=== PATIENT | male | born 1955 | race Caucasian/White ===

== ENCOUNTER → 2023-10-09 08:58 | Outpatient (REF) | payer MEDICARE, OTHER, SELFPAY | LOC: DHVS 08:58 | PROVIDERS: ATTENDING PHYSICIAN Surgery Vascular Surgery; FAMILY PHYSICIAN Physician Assistant; REFERRING PHYSICIAN Internal Medicine | DX: I73.9 Peripheral vascular disease, unspecified (principal) | CPT/HCPCS: 93922; 93925 ==

== ENCOUNTER → 2023-11-20 06:28 | Day surgery (SDC) | payer MEDICARE, OTHER, SELFPAY ==
[2023-11-20 07:19] LABS: Glucose - Point of Care 178 mg/dl (70-99)
== END ==
LOC: GI 06:28
PROVIDERS: ATTENDING PHYSICIAN Internal Medicine Gastroenterology
DX: Z12.11 Encounter for screening for malignant neoplasm of colon (principal); D12.2 Benign neoplasm of ascending colon; D12.5 Benign neoplasm of sigmoid colon; K64.8 Other hemorrhoids; Z86.010 Personal history of colon polyps
CPT/HCPCS: 45385; 88305; 82962

== ENCOUNTER → 2024-10-03 07:57 | Outpatient (REF) | payer MEDICARE, OTHER, SELFPAY | LOC: RAD 07:57 | PROVIDERS: ATTENDING PHYSICIAN Surgery Vascular Surgery; FAMILY PHYSICIAN Internal Medicine | DX: I73.9 Peripheral vascular disease, unspecified (principal); Z13.89 Encounter for screening for other disorder | CPT/HCPCS: 93922; 93925 ==

== ENCOUNTER 2024-12-25 06:10 | Inpatient (IN) | payer MEDICARE, OTHER, SELFPAY ==
[2024-12-22 09:37] VITALS: BMI 31.3
[2024-12-22 10:24] LABS: Hematocrit 32.9 % (39.0-52.0); Hemoglobin 11.1 g/dL (13.0-18.0); Mean Corp Hgb Conc. 33.7 g/dL (33.0-37.0); Mean Corpuscular Volume 84.8 fL (80.0-94.0); Nucleated Red Blood Cells % 0 % (-); Platelet Count 243 10^3/uL (130-400); Red Cell Dist. Width 13.4 % (11.5-14.5)
[2024-12-22 10:28] LABS: INR 0.95; PT 13.0 Sec (11.4-14.6)
[2024-12-22 10:29] LABS: APTT 30.9 Sec (23.4-35.0)
[2024-12-22 11:09] LABS: Blood Urea Nitrogen 22 mg/dl (9-20); Calcium 9.8 mg/dl (8.4-10.2); Carbon Dioxide 23 mmol/L (22-30); Chloride 104 mmol/L (98-107); Estimated Creatinine Clearance 88 ml/min; Glucose 88 mg/dl (70-99); Potassium 5.0 mmol/L (3.5-5.1); Sodium 135 mmol/L (135-145); eGFR > 60.00
[2024-12-25] VITALS (15 sets, daily range): BP systolic 135–166; BP diastolic 51–91; BMI 31.3; BMI 31.1
[2024-12-25] MEDS: BACTROBAN NASAL 1 GRAM NASAL (06:42)
[2024-12-25] MEDS: PERIDEX 0.12% ORAL RINSE 15 ML PO (06:42)
[2024-12-25] MEDS: NSS 500 IV (06:43)
[2024-12-25 06:48] LABS: Glucose - Point of Care 91 mg/dl (70-99)
--- NOTE | 2024-12-25 10:09 | OR.RPT ---
Operative Report
Operative Report
PROCEDURE DATE: 12/25/2024
Preoperative diagnosis: Symptomatic left carotid artery stenosis.
Postoperative diagnosis: Same
Procedure: Left carotid endarterectomy with bovine pericardial patch angioplasty and intraoperative EEG/SSEP monitoring.
Surgeon: Moises
Terminal Press Operator: MARI Goncalves, required for all aspects of procedure including assistance with traction/countertraction, following suture line, assistance with closure.
Complications: None
Anesthesia: General
Indications for procedure:
Patient with recent TIA event, expressive aphasia. [id number]. Left carotid stenosis noted. Discussed risk/benefits/alternatives of left carotid revascularization. Patient understood all wished to proceed.
Description of procedure:
Patient was identified brought to the operating room placed on the table in supine position. After the adequate administration of anesthesia and perioperative antibiotics he was prepped and draped in the standard surgical fashion. A standard
preoperative timeout was undertaken and everybody was in agreement the plan. A standard longitudinal incision was made in the [] neck that was carried through the skin subcutaneous tissue. Using the electrocautery dissection was carried through
the platysma muscle layer and then alongside the anterior medial border of the sternocleidomastoid muscle. Then using a combination of sharp dissection with the Metzenbaum scissors and electrocautery I dissected along the anterior medial border of
the internal jugular vein. The common facial vein branch was ligated between silk ties and then divided. I then deepened my retraction. The common carotid artery was identified and carefully dissected away from the surrounding structures take
great care to avoid any injury to the structures. A vessel loop was passed around it which was double looped, but not yet tightened. Note the vagus nerve was clearly visualized coursing along the lateral surface of the common carotid artery, and
was clearly protected from harm's way. I then continued my dissection up the common carotid artery to the bulb staying only on the anterior surface of the carotid artery. Then I carried the dissection up to the internal carotid artery and then to
the distal internal carotid artery. I identified where it was soft and carefully circumferentially dissected the internal carotid artery with minimal mobilization and passed a vessel loop around it. Note the hypoglossal nerve was not visualized
and felt to be further cephalad. The patient was given an appropriate dose of heparin 10,000 units. Next I dissected the anterior surface of the external carotid artery and superior thyroid branches. These were then carefully circumferentially
dissected with minimal mobilization and vessel loops passed around these which were double looped but not yet tightened. After 3 minutes of heparin circulation time and confirmation of optimization of the blood pressure with my anesthesiology
colleagues, I clamped the distal internal carotid artery where it was soft. There was no immediate EEG or SSEP changes. After 1 minute of test clamp time there was no changes noted. Therefore at this point, the vessel loops on the external
carotid artery and superior thyroid branches were tightened and the common carotid artery was clamped where it was soft proximally. An arteriotomy was made on the common carotid artery with an 11 blade and extended using a Tolliver scissor. Was
extended the arteriotomy onto the mid to distal internal carotid artery. We encountered hard calcified plaque with somewhat friable type shard like extensions into the lumen. The distalmost extent of the plaque in the internal carotid artery
resulted in this significant stenosis as noted on CT scan. A [place] was then used to endarterectomized the plaque. An endarterectomy plane was created, and the plaque was then endarterectomized. Distally I feathered the plaque out to a reasonable
endpoint in the distal internal carotid artery. Next I endarterectomized the intima back to normal intima in the common carotid artery, and the intima was cut flush there. I then grasped the plaque and everted plaque out of the origin of the
external carotid artery. The plaque was then sent off for specimen. The plaque did not come in the single piece out of the external carotid artery despite my efforts, and therefore I had to tease out additional plaque from the external carotid
artery. The origin of the external carotid artery was carefully visualized and any fine debris were removed with fine forceps. Proximal and distal endpoints were then carefully inspected. Proximally I had to extend the arteriotomy about a
centimeter to and cut the intima more flush so it was nicely adherent. Distally, there was a posterior lip of plaque that persisted and therefore I had to carefully further endarterectomized this and then cut it flush. Next any fine debris were
removed throughout the endarterectomy bed with fine forceps. Interrupted 7-0 Prolene tacking sutures were placed to tack the distal endpoint. I then flushed heparinized saline. I was very satisfied. Then, I used a bovine pericardial patch to sew
a patch angioplasty with a running 6-0 Prolene suture. Prior to completing and tying down my suture line, I backbled sequentially each branch and reclamped each branch prior to unclamping the next branch. I then irrigated with heparinized saline.
Then I completed and tied down my suture line. We then restored flow in the common carotid and external carotid arteries. Finally, we released flow in the internal carotid artery. There was excellent pulsatile flow in all 3 vessels. There was an
excellent Doppler signal in the internal carotid artery distal to the patch with a good normal low resistance Doppler signal. There was a good Doppler signal in the external carotid artery as well. Protamine was given to reverse the heparin.
Hemostasis was completely achieved. We then irrigated and confirmed full hemostasis. I began closing therefore, but was informed by our monitoring colleagues that there was a slight diminishment in right median SSEP potentials. There was
absolutely no EEG changes though. This is a little odd to me. Therefore I stopped closing and reinspected the endarterectomy site and noted everything to be pulsatile. I then used a sterile duplex probe and performed duplex of the
endarterectomized artery and all appeared widely patent with no evidence of residual plaque/unstable plaque or thrombus. There was some plaque in the distal external carotid artery that was residual. However nothing in the endarterectomized common
carotid/bulb/internal carotid artery. Therefore at this point I was very satisfied. SSEPs also returned to baseline with slight pressure elevation. We then closed in layers with 2-0 Vicryl layer to reapproximate the sternocleidomastoid muscle,
followed by 3-0 Vicryl platysma muscle running layer, followed by 4-0 Monocryl subcuticular stitch. Dermabond was applied. The patient tolerated procedure well. He awoke moving all extremities to command with tongue in the midline.
[2024-12-25 10:23] LABS: Glucose - Point of Care 146 mg/dl (70-99)
[2024-12-25] MEDS: DILAUDID 0.25 MG IV (10:54)
[2024-12-25 10:55] LABS: Hematocrit 31.7 % (39.0-52.0); Hemoglobin 10.7 g/dL (13.0-18.0); Mean Corp Hgb Conc. 33.8 g/dL (33.0-37.0); Mean Corpuscular Volume 85.7 fL (80.0-94.0); Platelet Count 226 10^3/uL (130-400); Red Cell Dist. Width 13.5 % (11.5-14.5)
[2024-12-25 11:04] LABS: INR 1.00; PT 13.7 Sec (11.4-14.6)
[2024-12-25 11:05] LABS: APTT 30.5 Sec (23.4-35.0)
[2024-12-25 11:08] LABS: Blood Urea Nitrogen 26 mg/dl (9-20); Calcium 9.6 mg/dl (8.4-10.2); Carbon Dioxide 20 mmol/L (22-30); Chloride 110 mmol/L (98-107); Estimated Creatinine Clearance 97 ml/min; Glucose 155 mg/dl (70-99); Potassium 4.9 mmol/L (3.5-5.1); Sodium 136 mmol/L (135-145); eGFR > 60.00
[2024-12-25 11:55] LABS: Glucose - Point of Care 179 mg/dl (70-99)
[2024-12-25] MEDS: NOVOLOG FLEXPEN-LOW RESISTANCE SC (12:00)
--- NOTE | 2024-12-25 12:15 | PTCARENOTE ---
Pt arrived to Rm [id number] via bed from PACU at 1130. Pt drowsy on arrival but easily arousable to name. Ox3 w/ conversation appropriate. Following commands. District Service Manager/leg strength symmetrical. Tongue midline, smile symmetrical. Rt radial A-line leveled,
transduced and zero-balanced, waveform WNL. Arrived w/ Cardene gtt infusing at 7.5mg/hr. SBP 130-140's. Lt neck incision noted- well approximated w/ surgical adhesive, no ecchymosis or swelling noted. Ice pack to Lt neck incision x20 min per order.
Pt arrived diaphoretic- CHG bath completed and comfort care provided. Physical assessment completed as documented. Pt reports frontal headache rates 3/10 despite previously administered Dilaudid in PACU. TT to Jatin ANN and informed of pt's
complaint. No additional orders at this time. Pt's to bedside. Admission questions completed. brought pt's walker, dentures and glasses from home. Call wilfredo w/in pt reach. Pt aware of bedrest orders. Urinal provided. Pt taking sips of
ameena obie and soon after reported some mild nausea. Emesis basis provided as requested and pt encouraged to slow PO intake until nausea subsides.
[2024-12-25] MEDS: NSS 1000 IV ×2 (14:16→21:27)
[2024-12-25] MEDS: ROXICODONE 5 MG PO (14:17)
--- NOTE | 2024-12-25 15:30 | CON.INTV ---
Consultation
Consultation Request
Date/Time Consultation Requested: 12/25/2024
Date/Time Consultation Performed: 12/25/2024
Requesting Provider: Dr. De Leon
Performing Provider: Dr. Robert Crawford
Reason for Consultation: Status post left carotid endarterectomy
Medical History
-
History of Present Illness:
69-year-old man with past medical history significant for type 2 diabetes, hypertension, peripheral vascular disease, bilateral carotic artery stenosis. Admitted for revascularization. Underwent left carotic endarterectomy. Patient transferred to
the critical care unit for further care.
Currently neurologically intact.
Denies any pain.
Denies headache or blurry vision
Hemodynamically stable.
Past Medical History
Past Medical History: Other
Social History
Tobacco: Former Smoker (Quit in 2021)
Alcohol: None
Drug: None
Family History
Family History: Reviewed & Not Pertinent
Allergies / Home Medications
Allergies
Allergy/AdvReac Type Severity Reaction Status Date / Time
vancomycin Allergy Unknown severe Verified 12/25/24 06:32
shakes
Home Medications
�Medication �Instructions �Recorded �Confirmed �Last Taken �Type
metformin 1,000 mg tablet 1,000 mg PO QPM Diabetes 06/17/10 12/25/24 12/24/24 17:00 History
aspirin 81 mg tablet,delayed 81 mg PO DAILY ##0 05/13/13 12/25/24 12/25/24 06:00 Rx
release
insulin glargine 100 unit/mL (3 60 unit SC HS Diabetes 08/07/17 12/25/24 12/24/24 17:00 History
mL) subcutaneous pen (Basaglar 30 units
KwikPen U-100 Insulin)
lisinopril 20 mg tablet 20 mg PO DAILY Blood Pressure 08/07/17 12/25/24 12/24/24 08:00 History
metformin 500 mg tablet 1,500 mg PO DAILY Diabetes 08/07/17 12/25/24 12/24/24 08:00 History
clopidogrel 75 mg tablet 75 mg PO DAILY ##30 08/14/17 12/25/24 12/25/24 06:00 Rx
atorvastatin 40 mg tablet 40 mg PO QPM High Cholesterol 12/18/24 12/25/24 12/24/24 17:00 History
pantoprazole 40 mg tablet,delayed 40 mg PO DAILY Gastrointestinal 12/18/24 12/25/24 12/24/24 08:00 History
release Issue
saxagliptin 5 mg tablet 5 mg PO DAILY Diabetes 12/18/24 12/25/24 12/24/24 08:00 History
Review of Systems
-
History Source: Patient
All other systems: Negative unless noted
Vitals / Labs / Diagnostic Testing
Vital Signs
Temp Pulse Resp BP Pulse Ox
97.9 F 109 13 156/60 99
12/25/24 11:30 12/25/24 13:30 12/25/24 13:30 12/25/24 11:45 12/25/24 13:30
Lab Data
12/25/24 10:41
12/25/24 10:41
Laboratory Results
12/25/24
10:41
PT 13.7
INR 1.00
APTT 30.5
Microbiology
12/22/24 09:50 Nose MRSA Screen - Final
No Methicillin Resistant Staphylococcus aureus isolated.
Diagnostic Testing:
Physical Exam
-
HEENT: Normocephalic, Other (No stridor on exam) and Other (Cervical incision intact without hematoma)
Cardiovascular: S1/S2
Respiratory: Non-Labored Respirations
GI: Soft and Non Distended
Neurology: Awake and Alert
Skin: Warm
General: Comfortable
Assessment
-
69-year-old man with past medical history noted. History of bilateral carotid disease. Admitted for revascularization. Underwent left carotid endarterectomy
Status post Left carotid endarterectomy with bovine pericardial patch angioplasty and intraoperative EEG/SSEP monitoring.-Dr. De Leon 12/25/2024
Conditions present prior admission:
Type 2 diabetes with neuropathy, retinopathy and peripheral arterial disease.
Hypertension
Dyslipidemia
Right foot osteomyelitis status post tarsal amputation 2010
Osteomyelitis of the left great toe hallux amputation
History of CVA/TIA
Vasectomy
Left popliteal artery angioplasty without stent 07/2017
Assessment and plan:
Postoperative day 0:
Postoperative surgical intensive care unit monitoring
Supplemental oxygen as needed
Incentive spirometry
Preoperative chest x-ray 12/22/2024: Reviewed showed clear lungs. Mild nonspecific scarring in both lung bases.
Aspiration precautions
Continue analgesia
Incision currently intact without hematoma
Neurologically intact
Neuro and vascular checks per protocol
Vascular surgery following-correspondence and operative notes reviewed
Monitor blood pressure
Restart outpatient antihypertensive.
Arterial line in place
Cardene drip -ongoing, will titrate as necessary.
Eventual restart antiplatelets.
Continue statins
Advance diet.
Gentle IV fluids for today
Follow blood sugars
Subcu insulin restarted
Insulin supplementation as needed
DVT prophylaxis-SCDs for now. Heparin subcu.
Early nutrition
Early mobilization
-
Critical care statement: A total of 31 minutes of critical care time was provided for this patient today. This includes management of unstable vital signs, evaluation of the patient at bedside, reviewing the patient's pertinent medical records
including ventilator settings, arterial blood gases, radiographs, microbiology, laboratory evaluations and discussion with primary team, critical care nursing, and respiratory therapy.
[2024-12-25] MEDS: CARDENE 200 IV ×2 (15:36→20:47)
[2024-12-25] MEDS: NOVOLOG FLEXPEN-LOW RESISTANCE 2 UNITS SC (16:19)
[2024-12-25 16:29] LABS: Glucose - Point of Care 242 mg/dl (70-99)
--- NOTE | 2024-12-25 16:30 | PTCARENOTE ---
Pt conts to rest quietly in bed. Neurologically unchanged. Incision w/o change. Ice pack to neck x20 min. Reports improvement in Headache and neck discomfort since previously administered Oxycodone. Tolerating clear liquids- diet advanced and pt
assisted in ordering food. Titrating Cardene gtt to keep SBP <165. Dr De Leon in to see pt. No new orders obtained.
[2024-12-25] MEDS: LIPITOR 40 MG PO (17:49)
[2024-12-25] MEDS: GLUCOPHAGE 1000 MG PO (17:50)
[2024-12-25] MEDS: ZESTRIL 20 MG PO (18:40)
[2024-12-25 21:26] LABS: Glucose - Point of Care 317 mg/dl (70-99)
[2024-12-25] MEDS: LANTUS 0.6 UNITS SC (21:27)
[2024-12-25] MEDS: NOVOLOG FLEXPEN-HIGH RESISTANCE 10 UNITS SC (21:28)
[2024-12-26] VITALS (22 sets, daily range): BP systolic 122–181; BP diastolic 55–87; BMI 31.1
[2024-12-26] MEDS: CARDENE 200 IV ×2 (00:17→03:54)
[2024-12-26] MEDS: TYLENOL 650 MG PO ×2 (04:11→23:28)
[2024-12-26 04:15] LABS: Hematocrit 30.0 % (39.0-52.0); Hemoglobin 10.0 g/dL (13.0-18.0); Mean Corp Hgb Conc. 33.3 g/dL (33.0-37.0); Mean Corpuscular Volume 85.5 fL (80.0-94.0); Platelet Count 229 10^3/uL (130-400); Red Cell Dist. Width 13.6 % (11.5-14.5)
--- NOTE | 2024-12-26 04:20 | PTCARENOTE ---
AM labs sent. L CEA site site with surgical adhesive, well approximated, minimal bruising/swelling overnight. q1h neuro checks ongoing. SBP goal 100-165, cardene gtt continues, titrated down overnight - see flowsheet. SR on monitor w/ 1st degree HB
and BBB. on 2L NC. using urinal in bed. R foot amp, extremities elevated on pillows. R radial arterial line leveled and zeroed. IVF infusing. call villalobos in reach.
[2024-12-26 04:23] LABS: INR 1.03; PT 14.0 Sec (11.4-14.6)
[2024-12-26 04:24] LABS: APTT 30.6 Sec (23.4-35.0)
[2024-12-26 04:42] LABS: Blood Urea Nitrogen 25 mg/dl (9-20); Calcium 8.9 mg/dl (8.4-10.2); Carbon Dioxide 20 mmol/L (22-30); Chloride 110 mmol/L (98-107); Estimated Creatinine Clearance 108 ml/min; Glucose 234 mg/dl (70-99); Potassium 4.6 mmol/L (3.5-5.1); Sodium 135 mmol/L (135-145); eGFR > 60.00
[2024-12-26] MEDS: ZESTRIL 20 MG PO (07:30)
[2024-12-26] MEDS: PLAVIX 75 MG PO (07:30)
[2024-12-26] MEDS: ASPIR LOW (ENTERIC COATED) 81 MG PO (07:30)
[2024-12-26] MEDS: GLUCOPHAGE 1500 MG PO (07:30)
[2024-12-26] MEDS: PROTONIX 40 MG PO (07:30)
[2024-12-26] MEDS: JANUVIA 100 MG PO (07:32)
--- NOTE | 2024-12-26 07:49 | PTCARENOTE ---
pt received from previous rn- aox4, neuro checks wnl, nsr with 1st degree block w/ bbb and pvcs on monitor. right radial rajwinder zeroed and functioning, pt placed on room air. left neck incision wnl. Jaquelin Goncalves and Joann ANN at bedside,
ordered to turn cardene off and d/c ivf. pt with no complaints at this time. educated about plan of care, verbalized understanding. all safety precautions in place, call villalobos within reach.
--- NOTE | 2024-12-26 07:52 | W.PN.VS ---
Addendum entered and electronically signed by Clarence Keen III, MD 12/26/24 13:50:
This patient was seen and examined in collaboration with SETH De. I agree with the history and physical exam as well as the assessment and plan. I have the following additions:
Is of IV nicardipine currently but remains somewhat hypertensive
We will add in his home oral medication
May need additional medication depending on BP control today
Will follow
Doubt he will be ready to go today as he needs better blood pressure management
Signed:
Clarence Keen III, MD
Vascular Surgery
[facility]
Original Note:
Today's Communication / Plan
-
Plan reviewed with attending Dr. Clarence Keen III
Assessment/Plan
-
Assessment: 69 year old male POD#1 Left CEA
Plan:
Wean off Cardene following home morning antihypertensive medications, then dc rajwinder
DC IV fluids
OOB to chair with progression to ambulation as tolerated
Continue antiplatelet and statin medications
Possible dc today
Subjective Data
-
Date of Service: December 26, 2024
Patient seen and examined at bedside, offers no complaints. Denies nausea, vomiting, headache, fever, and chills. Tolerating PO diet, denies dysphagia.
Objective Data
-
Vital Signs
Temp Pulse Resp BP Pulse Ox
97.7 F 87 15 140/60 96
12/26/24 07:35 12/26/24 06:00 12/26/24 05:30 12/26/24 04:00 12/26/24 07:48
Intake and Output
12/25/24 12/26/24 12/27/24
06:59 06:59 06:59
Intake Total 3480.0 / 3585.0 105 / 105
Output Total 1525 / 1750 225 / 225
Balance 1955.0 / 1835.0 -120 / -120
Intake:
Oral fluids 960 / 960
IV fluids (Total) 2520.0 / 2625.0 105 / 105
Cardene 900.0 / 925.0
Normosol 100 / 100
Nss 1,000 ml @ 80 mls/hr IV . 1520 / 1600 80 / 80
[id number] [id number] Rx#:[id number]
Output:
Urine, Voided 1524 / 1750
Lab Results
12/26/24 03:59
12/26/24 03:59
Calcium 8.9 mg/dl (8.4-10.2) 12/26/24 03:59
Physical Exam
-
No apparent distress, resting comfortably in bed
Face symmetrical, tongue midline, left neck surgical incision CDI, no evidence of hematoma or edema
No tachycardia
No dyspnea on room air
Moves BL UE and LE to command and spontaneously with equal strength
[2024-12-26 08:09] LABS: Glucose - Point of Care 141 mg/dl (70-99)
[2024-12-26] MEDS: NOVOLOG FLEXPEN-HIGH RESISTANCE SC (08:11)
--- NOTE | 2024-12-26 08:57 | W.PN.INTV ---
Today's Communication / Plan
Recommendations
Continue postoperative care
Maintain A-line for now until blood pressure improved
Norvasc started
Will reevaluate in the afternoon
Assessment
-
69-year-old man with past medical history noted. History of bilateral carotid disease. Admitted for revascularization. Underwent left carotid endarterectomy
Status post Left carotid endarterectomy with bovine pericardial patch angioplasty and intraoperative EEG/SSEP monitoring.-Dr. De Leon 12/25/2024
Conditions present prior admission:
Type 2 diabetes with neuropathy, retinopathy and peripheral arterial disease.
Hypertension
Dyslipidemia
Right foot osteomyelitis status post tarsal amputation 2010
Osteomyelitis of the left great toe hallux amputation
History of CVA/TIA
Vasectomy
Left popliteal artery angioplasty without stent 07/2017
Assessment and plan:
Postoperative day 1:
Overall doing well.
Pain is controlled
Incision is intact without hematoma
Not on oxygen requirement
Increase mobility as able
Incentive spirometry-encourage
-
Preoperative chest x-ray 12/22/2024: Reviewed showed clear lungs. Mild nonspecific scarring in both lung bases.
Aspiration precautions
Continue analgesia
Neurologically intact
Neuro and vascular checks per protocol
Vascular surgery following-correspondence and operative notes reviewed
Hypertensive
Lisinopril restarted
Patient on Cardene drip-discontinue
Norvasc started this morning
Continue to observe for several hours to assure blood pressure is improved
If blood pressure improves then discontinue A-line later today
Eventual restart antiplatelets.
Continue statins
Advance diet.
Gentle IV fluids for today
Follow blood sugars
Subcu insulin Cont.
DVT prophylaxis-SCDs for now. Heparin subcu.
-
Maintain ICU level of care-patient with arterial line
Monitor blood pressure
Will reevaluate in the afternoon
Subjective Dataa
Subjective Data
Date of Service:
Date of Service: December 26, 2024
Chief Complaint: Adoption Agent Follow Up (Status post carotid endarterectomy)
Subjective:
Patient denies any new complaints
Hypertensive overnight
Denies any headache or blurry vision
Denies nausea or vomiting
Pain is controlled
Review of Systems
Cardiopulmonary: Dyspnea (Not at rest), Cough (n) and Sputum Production (n)
GI: Abdominal Pain (n) and Nausea (n)
Objective Data
Data Reviewed
Vital Signs / I&O / Oxygen:
Vital Signs
Temp Pulse Resp BP Pulse Ox
97.7 F 89 18 155/81 97
12/26/24 07:35 12/26/24 08:00 12/26/24 08:00 12/26/24 08:00 12/26/24 08:00
Intake and Output
12/25/24 12/26/24 12/27/24
06:59 06:59 06:59
Intake Total 3480.0 / 3585.0 105 / 105
Output Total 1525 / 1750 425 / 425
Balance 1955.0 / 1835.0 -320 / -320
SaO2 97
Nasal Cannula flow liters per 2
minute
Physical Exam
General: Comfortable
HEENT: Normocephalic and Other (Incision is intact, no stridor on exam, no hematoma)
Cardiovascular: S1-S2
Respiratory: Non-Labored Respirations
GI: Soft and Non Distended
Neurology: Awake and Alert
Skin: Warm
Labs/Micro/Reports
Lab Data
12/26/24 03:59
12/26/24 03:59
Laboratory Results
12/25/24 12/26/24
10:41 03:59
PT 13.7 14.0
INR 1.00 1.03
APTT 30.5 30.6
Microbiology
12/22/24 09:50 Nose MRSA Screen - Final
No Methicillin Resistant Staphylococcus aureus isolated.
--- NOTE | 2024-12-26 09:11 | PTCARENOTE ---
Dr. Keen and Joann brewer aware of blood pressure fluctuations up to 190s but nonsustained on arterial line, aware of cuff pressures. see mar for further orders. ordered to keep arterial line at this time.
[2024-12-26 09:41] LABS: Glycohemoglobin (HgbA1c) 7.2 % (4.0-5.6)
[2024-12-26] MEDS: NORVASC 5 MG PO ×2 (10:22→12:49)
--- NOTE | 2024-12-26 11:24 | CM ---
Addendum entered by Gregor Richardson 12/26/24 14:03:
Discharge POC: and patient would like RN to monitor B/P's. Referral sent to [facility] for RN.
Original Note:
Initial assessment completed with patient who lives with his in a 1 floor, 3rd floor apartment in an elevator building. No steps to enter the building. 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 He wears either a RLE
boot or specialized shoe because his R foot was amputated 14 years ago due to diabetic wound. He has a special adapter for the car which allows him to drive with his Left foot. It can be easily removed for to drive. Patient also has a RW,
rollator, W/CH, raised toilet seat, glucometer, B/P machine, bed rail to assist OOB. He generally counter and furniture surfs when in the home. Uses RW and rollator when out. He has private pay physical therapist. No HC-POA. No service.
PCP is Dr. Shayne Elias and Pharmacy is [facility] on [address] in [place]. Discharge POC: Anticipate Home with no needs.
[2024-12-26] MEDS: NOVOLOG FLEXPEN-HIGH RESISTANCE 2 UNITS SC ×2 (11:47→17:20)
[2024-12-26 11:57] LABS: Glucose - Point of Care 173 mg/dl (70-99)
--- NOTE | 2024-12-26 12:12 | PTCARENOTE ---
pt oob to chair, arterial line pressures elevated and not correlating with cuff- Dr. Crawford and Joann Mendez computer numeric control setter aware, see mar. a line removed per joann mendez, pressure dressing applied
--- NOTE | 2024-12-26 16:56 | PTCARENOTE ---
assessment unchanged, pt oob for approx 4 hours.
[2024-12-26] MEDS: GLUCOPHAGE 1000 MG PO (17:22)
[2024-12-26] MEDS: HEPARIN 5000 UNITS SC ×2 (17:22→23:28)
[2024-12-26] MEDS: LIPITOR 40 MG PO (17:22)
[2024-12-26 17:31] LABS: Glucose - Point of Care 171 mg/dl (70-99)
--- NOTE | 2024-12-26 19:57 | PTCARENOTE ---
Pt aox3, VSS, SBP mildly elevated. NSR w/ bbb on monitor, c/o 2/10 pain in left neck incision, did not want anything for pain. OOB to bathroom with prothesis and walker to attempt a BM. No success at this time. Pt offers no other complaints at this
time.
[2024-12-26] MEDS: NOVOLOG FLEXPEN-HIGH RESISTANCE 4 UNITS SC (22:14)
[2024-12-26] MEDS: LANTUS 0.6 UNITS SC (22:14)
[2024-12-26 22:15] LABS: Glucose - Point of Care 205 mg/dl (70-99)
[2024-12-26] MEDS: APRESOLINE 10 MG IV (23:26)
[2024-12-27] VITALS (23 sets, daily range): BP systolic 117–187; BP diastolic 60–87; BMI 30.8
--- NOTE | 2024-12-27 00:23 | PTCARENOTE ---
Pt SBP >170, one time dose of Hydralazine given.
[2024-12-27] MEDS: CARDENE 200 IV (03:24)
[2024-12-27 03:30] LABS: Glucose - Point of Care 138 mg/dl (70-99)
[2024-12-27 03:49] LABS: Hematocrit 30.5 % (39.0-52.0); Hemoglobin 10.4 g/dL (13.0-18.0); Mean Corp Hgb Conc. 34.1 g/dL (33.0-37.0); Mean Corpuscular Volume 85.4 fL (80.0-94.0); Platelet Count 230 10^3/uL (130-400); Red Cell Dist. Width 13.3 % (11.5-14.5)
[2024-12-27 04:10] LABS: Blood Urea Nitrogen 22 mg/dl (9-20); Calcium 9.6 mg/dl (8.4-10.2); Carbon Dioxide 24 mmol/L (22-30); Chloride 107 mmol/L (98-107); Estimated Creatinine Clearance 108 ml/min; Glucose 106 mg/dl (70-99); Magnesium 1.5 mg/dl (1.6-2.3); Potassium 4.2 mmol/L (3.5-5.1); Sodium 137 mmol/L (135-145); eGFR > 60.00
[2024-12-27] MEDS: NORVASC 10 MG PO (04:51)
[2024-12-27] MEDS: ZESTRIL 20 MG PO (04:51)
[2024-12-27] MEDS: TYLENOL 650 MG PO (04:54)
--- NOTE | 2024-12-27 05:01 | PTCARENOTE ---
Pt SBP remains elevated 170-180 systolic. Genesis restarted, reached out to Dr. Keen, which suggested to give morning hypertensive medications now and titrate off drip. Mag 1.5 with morning labs, SETH Harkins was notified.
[2024-12-27] MEDS: MAGNESIUM SULFATE 50 IV (05:24)
[2024-12-27] MEDS: HEPARIN 5000 UNITS SC (07:21)
[2024-12-27] MEDS: MIRALAX 17 GRAMS PO (07:21)
[2024-12-27] MEDS: JANUVIA 100 MG PO (07:22)
[2024-12-27] MEDS: PROTONIX 40 MG PO (07:22)
[2024-12-27] MEDS: ASPIR LOW (ENTERIC COATED) 81 MG PO (07:22)
[2024-12-27] MEDS: GLUCOPHAGE 1500 MG PO (07:22)
[2024-12-27] MEDS: PLAVIX 75 MG PO (07:22)
[2024-12-27] MEDS: SENOKOT-S 1 TABLET PO (07:22)
[2024-12-27 07:23] LABS: Glucose - Point of Care 97 mg/dl (70-99)
[2024-12-27] MEDS: NOVOLOG FLEXPEN-HIGH RESISTANCE 1 UNITS SC ×2 (07:25→11:58)
--- NOTE | 2024-12-27 07:33 | PTCARENOTE ---
pt received from previous rn- aox4, neuro checks wnl, cardene off. nsr with 1st degree and bbb on monitor, room air. pt oob to chair, no complaints at this time. left neck incision wnl. pt educated on plan of care-verbalized understanding. all
safety precautions in place, call villalobos within reach.
--- NOTE | 2024-12-27 08:22 | W.PN.INTV ---
Today's Communication / Plan
Recommendations
- Continue to monitor off Cardene infusion
- If stays off Cardene drip for next few hours, can be transferred out of ICU at which point organizational effectiveness director service will sign off
- Out patient follow up with Pulmonary clinic, information added to discharge section
Assessment
-
69-year-old man with past medical history noted. History of bilateral carotid disease. Admitted for revascularization. Underwent left carotid endarterectomy
Status post Left carotid endarterectomy with bovine pericardial patch angioplasty and intraoperative EEG/SSEP monitoring.-Dr. De Leon 12/25/2024
Conditions present prior admission:
Type 2 diabetes with neuropathy, retinopathy and peripheral arterial disease.
Hypertension
Dyslipidemia
Right foot osteomyelitis status post tarsal amputation 2010
Osteomyelitis of the left great toe hallux amputation
History of CVA/TIA
Vasectomy
Left popliteal artery angioplasty without stent 07/2017
Assessment and plan:
Postoperative day 2:
Overall doing well.
Pain is controlled
Saturating 95% on room air, not on any infusions
Increase mobility as able
Incentive spirometry-encourage
-
Preoperative chest x-ray 12/22/2024: Reviewed showed clear lungs. Mild nonspecific scarring in both lung bases.
Aspiration precautions
Continue analgesia
Neurologically intact
Neuro and vascular checks per protocol
Vascular surgery following-correspondence and operative notes reviewed
Hypertension: Currently on amlodipine 10 mg and lisinopril 20 mg. Off Cardene drip since 7 AM this morning. Most recent blood pressure 134 x 75 with a MAP of 92.
Continue to observe for several hours to assure blood pressure is improved
If patient stays off Cardene drip in coming hours, can be transferred out of ICU
H/o Smoking. 50 pack year smoking history. Candidate for LDCT for lng cancer screening. Also would benefit from PFTs as out patient, occasional wheezing reported. Quit smoking 3+ years ago. Recommend out patient pulmonary follow up. information
added to the chart.
Currently on aspirin, clopidogrel and statins.
Advance diet.
Follow blood sugars
Subcu insulin Cont.
DVT prophylaxis-subcu heparin.
-
Critical Care time 32 mins -- The patient is admitted for acute critical illness for the treatment of vital organ failure and/or prevention of further life-threatening conditions. Total care includes time spent in review of history, physical exam,
medications, hemodynamic/ventilator parameters, laboratory data, imaging and discussion with house staff, pharmacy, respiratory therapy, instrument repairer helper, and nursing.
Subjective Dataa
Subjective Data
Date of Service:
Date of Service: December 27, 2024
Chief Complaint: Receptionist Doctor'S Office Follow Up (Status post carotid endarterectomy)
Subjective:
Patient comfortably sitting in bed in no acute distress.
Review of Systems
Genitourinary: Other (No new symptoms reported.)
Objective Data
Data Reviewed
Vital Signs / I&O / Oxygen:
Vital Signs
Temp Pulse Resp BP Pulse Ox
98.2 F 105 16 134/72 96
12/27/24 07:22 12/27/24 08:00 12/27/24 03:33 12/27/24 08:00 12/27/24 07:32
Intake and Output
12/26/24 12/27/24 12/28/24
06:59 06:59 06:59
Intake Total 3480.0 / 3585.0 105 / 105
Output Total 1525 / 1750 3075 / 3075 100 / 100
Balance 1955.0 / 1835.0 -2970 / -2970 -100 / -100
SaO2 96
Nasal Cannula flow liters per 97
minute
Physical Exam
General: Comfortable
HEENT: Normocephalic and Other (Incision is intact, no stridor on exam, no hematoma)
Cardiovascular: S1-S2
Respiratory: Clear and Non-Labored Respirations
GI: Soft and Non Distended
Neurology: Awake and Alert
Skin: Warm
Labs/Micro/Reports
Lab Data
12/27/24 03:30
12/27/24 03:30
--- NOTE | 2024-12-27 11:03 | W.PN.VS ---
Today's Communication / Plan
-
Assessment: 69 year old male POD#2 Left CEA. BP better controlled today
Plan:
-Home today. Amlodipine/Lisinopril
-Check BP at home bid and keep log
-F/U with PCP for ongoing BP mgmt
-F/U with De Leon
-Antiplatelet and statin
Assessment/Plan
-
Assessment: 69 year old male POD#2 Left CEA. BP better controlled today
Plan:
-Home today. Amlodipine/Lisinopril
-Check BP at home bid and keep log
-F/U with PCP for ongoing BP mgmt
-F/U with De Leon
-Antiplatelet and statin
Subjective Data
-
Date of Service: December 27, 2024
No complaints
Sitting in chair
Comfortable
No HARRIS's
No pain
No CP/SOB
Objective Data
-
Vital Signs
Temp Pulse Resp BP Pulse Ox
98.2 F 104 20 122/69 96
12/27/24 07:22 12/27/24 09:30 12/27/24 09:30 12/27/24 09:30 12/27/24 07:32
Intake and Output
12/26/24 12/27/24 12/28/24
06:59 06:59 06:59
Intake Total 3480.0 / 3585.0 105 / 105
Output Total 1525 / 1750 3075 / 3075 100 / 100
Balance 1955.0 / 1835.0 -2970 / -2970 -100 / -100
Intake:
Oral fluids 960 / 960
IV fluids (Total) 2520.0 / 2625.0 105 / 105
Cardene 900.0 / 925.0
Normosol 100 / 100
Nss 1,000 ml @ 80 mls/hr IV . 1520 / 1600 80 / 80
[id number] [facility] Rx#:[id number]
Output:
Urine, Voided 1525 / 1750 3075 / 3075 100 / 100
Lab Results
12/27/24 03:30
12/27/24 03:30
Calcium 9.6 mg/dl (8.4-10.2) 12/27/24 03:30
Magnesium 1.5 mg/dl (1.6-2.3) L 12/27/24 03:30
Physical Exam
-
Neck incision clean/dry
Alert/oriented
Non labored breathing
--- NOTE | 2024-12-27 11:29 | CM ---
Pt for discharge today, will transport him home. Pt aware of [facility] referral and agreeable, knows he will hear from them in next few days.
No other CM needs at this time.
--- NOTE | 2024-12-27 11:33 | PTCARENOTE ---
pt ambulated around unit with rn, used walker and right leg boot without difficulty.
[2024-12-27 12:09] LABS: Glucose - Point of Care 147 mg/dl (70-99)
--- NOTE | 2024-12-27 13:37 | PTCARENOTE ---
pt and given discharge instructions and education, verbalized understanding. ivs removed and tele pack. wheelchaired down by rn.
== END 2024-12-27 13:48 | disposition home health service (06) | DRG 39 ==
LOC: ICU 06:10
PROVIDERS: Nurse Practitioner Acute Care; Nurse Practitioner Primary Care; ADMITTING PHYSICIAN Surgery Vascular Surgery; CONSULT PHYSICIAN Internal Medicine Critical Care Medicine; FAMILY PHYSICIAN Internal Medicine
PROC: 03UL0KZ Supplement Left Internal Carotid Artery with Nonautologous Tissue Substitute, Open Approach (ICD-10-PCS; 2024-12-25)
PROC: 03CL0ZZ Extirpation of Matter from Left Internal Carotid Artery, Open Approach (ICD-10-PCS; 2024-12-25)
DX: I65.22 Occlusion and stenosis of left carotid artery (principal); I10 Essential (primary) hypertension; E11.51 Type 2 diabetes mellitus with diabetic peripheral angiopathy without gangrene; E11.319 Type 2 diabetes mellitus with unspecified diabetic retinopathy without macular edema; I77.1 Stricture of artery; E11.40 Type 2 diabetes mellitus with diabetic neuropathy, unspecified; Z79.82 Long term (current) use of aspirin; Z88.1 Allergy status to other antibiotic agents; Z87.891 Personal history of nicotine dependence; Z79.4 Long term (current) use of insulin; Z79.02 Long term (current) use of antithrombotics/antiplatelets; Z79.84 Long term (current) use of oral hypoglycemic drugs; Z86.73 Personal history of transient ischemic attack (TIA), and cerebral infarction without residual deficits
CPT/HCPCS: 35301; 36415; 71046; 80048; 82962; 83036; 83735; 85025; 85027; 85610; 85730; 86850; 86900; 86901; 87070; 88304; 88311; 93005; 95938; 95941; 95955

== ENCOUNTER → 2025-01-13 13:52 | Outpatient (REF) | payer MEDICARE, OTHER, SELFPAY | LOC: RAD 13:52 | PROVIDERS: ATTENDING PHYSICIAN Registered Nurse; FAMILY PHYSICIAN Internal Medicine | DX: I73.9 Peripheral vascular disease, unspecified (principal); I65.22 Occlusion and stenosis of left carotid artery | CPT/HCPCS: 93880 ==

== ENCOUNTER → 2025-03-11 12:45 | Outpatient (REF) | payer MEDICARE, OTHER, SELFPAY | LOC: RAD 12:45 | PROVIDERS: ATTENDING PHYSICIAN Internal Medicine; FAMILY PHYSICIAN Internal Medicine | DX: Z87.891 Personal history of nicotine dependence (principal) | CPT/HCPCS: 71271 ==